=== PATIENT | female | born 1960 | race Hispanic/Latino ===

== ENCOUNTER 2021-06-02 10:17 | Outpatient (CLI) | payer OTHER ==
--- NOTE | 2021-06-02 11:28 | XRay Report ---
CERVICAL SPINE 3 VIEWS INDICATION: Neck pain. COMPARISON: None. IMPRESSION: Normal alignment. Mild discogenic DJD is identified at C5-6. The facet joints are unrem arkable. No acute osseous or soft tissue abnormality. LUMBOSACRAL SPINE 3 VIEWS INDICATION: BACK PAIN. COMPARISON: None. IMPRESSION: Normal alignment. 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 The remaining levels are within normal limits. The SI joints are unremarkable. No acute osseous or soft tissue abnormality. Signer Name: Nixon Guzman Jr, MD Signed: 06/02/2021 11:24 AM Workstation Name: [id number]
== END 2021-06-02 10:18 | disposition home or self-care (01) ==
LOC: XRAY 10:17
PROVIDERS: ATTEND Internal Medicine
DX: M47.812 Spondylosis without myelopathy or radiculopathy, cervical region (principal); M47.817 Spondylosis without myelopathy or radiculopathy, lumbosacral region
CPT/HCPCS: 72040; 72100